=== PATIENT | male | born 1980 | race Caucasian/White ===

== ENCOUNTER 2016-11-26 10:01 | Emergency (ER) | payer MEDICAID ==
[~2016-11-26] VITALS: Ht 167.6 cm; Wt 88.0 kg
[~2016-11-26 10:01] MED LIST: IBUP-725 PO
[2016-11-26 10:03] VITALS: Ht 167.6 cm; Wt 88.0 kg
[2016-11-26] MEDS ORDERED: LIDOCAINE 2% (MDV) 20 ML INJ INJ STA (10:21)
[2016-11-26] MEDS ORDERED: DIPHTH/TET/ACEL PERTUSS (ADULT) 0.5 ML VIAL IM* ONE (10:30)
--- NOTE | 2016-11-26 11:31 | ERD ---
ER Documentation Chief Complaint Date/Time DATE: 11/26/16 TIME: 11:25 Chief Complaint LT MIDDLE FINGER LAC HPI This is a 36-year-old male with a history of diabetes type 2 and hypertension presenting to the emergency room complaining of a superficial laceration to the left volar aspect of the middle finger status post screwdriver injury, patient states that he was running to remove a doorknob with a screwdriver and he missed and cut his left middle finger. Patient states the pain is 4 out of 10, he denies any rashes range of motion. Patient does not remember his last shot. Patient also states that he has not checked his blood sugars in the past 2 years , he states that he has not been to the doctor's and he is worried about his blood sugars. Patient states that he used to take metformin. ROS All systems reviewed and are negative except as per history of present illness. Medications Home Meds Active Scripts Metformin* (Glucophage*) 500 Mg Tab, 500 MG PO BID, #60 TAB Prov:MIKAEL DIETRICH PA-C 11/26/16 Reported Medications Ibuprofen (Motrin) 400 Mg Tablet, 400 MG PO 04/15/12 Allergies Allergies: Coded Allergies: No Known Allergy (Unverified , 11/26/16) PMhx/Soc Medical and Surgical Hx: pt denies Medical Hx History of Surgery: Yes (HERNIA) Anesthesia Reaction: No Hx Neurological Disorder: No Hx Respiratory Disorders: No Hx Cardiac Disorders: No Hx Psychiatric Problems: No Hx Miscellaneous Medical Probl: No Hx Alcohol Use: No Hx Substance Use: No Hx Tobacco Use: No Physical Exam Vitals Vital Signs Date Time Temp Pulse Resp B/P Pulse Ox O2 Delivery O2 Flow Rate FiO2 11/26/16 13:15 98.0 80 18 120/70 99 11/26/16 10:03 98.0 84 18 124/77 99 Physical Exam General: WD/WN, in no apparent distress, non-toxic appearing HENT: NC/AT Eyes: Conjunctiva normal Neck: Supple Pulm: Normal labored breathing CV: Good capillary refill GI: Non-distended, no guarding Back: No masses Ext: No clubbing, cyanosis, or edema Neuro: Moves on all fours, no neuro deficits, sensation intact Skin: 1.2cm superficial laceration on the volar aspect of the distal left middle finger Psych: Normal mood Result Diagram: 11/26/16 1135 11/26/16 1135 Results 24 hrs Laboratory Tests Test 11/26/16 10:57 11/26/16 11:20 11/26/16 11:35 Bedside Glucose 221mg/dL Urine Color LT. YELLOW Urine Clarity CLEAR Urine pH 6.5 Urine Specific [place] 1.010 Urine Ketones NEGATIVE Urine Nitrite NEGATIVE Urine Bilirubin NEGATIVE Urine Urobilinogen 0.2 E.U./dL Urine Leukocyte Esterase NEGATIVE Urine Hemoglobin NEGATIVE Urine Glucose >=1000% Urine Total Protein NEGATIVE White Blood Count 10.810^3/ul Red Blood Count 5.4610^6/ul Hemoglobin 15.4g/dl Hematocrit 47.5% Mean Corpuscular Volume 87.0fl Mean Corpuscular Hemoglobin 28.2pg Mean Corpuscular Hemoglobin Concent 32.4g/dl Red Cell Distribution Width 12.6% Platelet Count 28058^3/UL Mean Platelet Volume 10.5fl Neutrophils % 43.4% Lymphocytes % 44.1% Monocytes % 6.5% Eosinophils % 5.1% Basophils % 0.7% Nucleated Red Blood Cells % 0.0/100WBC Neutrophils # 4.710^3/ul Lymphocytes # 4.810^3/ul Monocytes # 0.710^3/ul Eosinophils # 0.610^3/ul Basophils # 0.110^3/ul Nucleated Red Blood Cells # 0.010^3/ul Sodium Level 137mmol/L Potassium Level 4.0mmol/L Chloride Level 98mmol/L Carbon Dioxide Level 25mmol/L Anion Gap 18 Blood Urea Nitrogen 16mg/dl Creatinine 0.62mg/dl Glucose Level 246mg/dl Calcium Level 9.1mg/dl Total Bilirubin 0.6mg/dl Direct Bilirubin 0.00mg/dl Indirect Bilirubin 0.6mg/dl Aspartate Amino Transf (AST/SGOT) 21IU/L Alanine Aminotransferase (ALT/SGPT) 30IU/L Alkaline Phosphatase 90IU/L Total Protein 7.3g/dl Albumin 4.3g/dl Globulin 3.00g/dl Albumin/Globulin Ratio 1.43 Current Medications Medications (Trade) Dose Ordered Sig/Christopher Route PRN Reason Start Time Stop Time Status Last Admin Dose Admin Diphtheria/ Tetanus/Acell Pertussis (Adacel) 0.5 ml ONCE ONCE IM* 11/26/16 10:30 11/26/16 10:31 DC 11/26/16 10:32 Lidocaine (Xylocaine 2% (Mdv) 20 ml) 20 ml ONCE STAT INJ 11/26/16 10:21 11/26/16 10:23 DC Metformin HCl (Glucophage) 500 mg ONCE STAT PO 11/26/16 12:09 11/26/16 12:11 DC 11/26/16 13:09 Procedures/MDM This is a 36-year-old male with history of diabetes type 2 and hypertension patient presents to the ER with a superficial laceration on left volar aspect of the middle finger. My clinical suspicion for fracture, nerve/tendon/arterial injury is low due to physical examination. In the ED, patient was given TDAP and prepared for wound closure. In addition patient had a complaints of his blood sugars not be checked for the past 2 years therefore an Accu-Chek was done in the ED and glucose level was 230. Patient used to take metformin 2 years ago and has not had his blood sugars checked. Patient is suitable to follow-up with his primary care physician for further management. Blood work was drawn, patient had a glucose level of 246 and was treated with metformin the ED. and I have given patient prescription for metformin until he is able to follow-up with his primary care physician. I will low suspicion for DKA or hyper osmolar state. Patient appears well with stable vital signs. PROCEDURE NOTE: Consent was obtained. Patient was positioned appropriately. Copious amount of normal saline was used for irrigation. Wound was cleansed with betanidine. Approximately 3cc of lidocaine 2% without epinephrine was used as a digital block Patient was sterile draped with wound exposed. Wound was closed with good approximation with 3 x 4-0 Prolene sutures. Procedure tolerated without complications. Wound dressed with bacitracin and sterile gauze. DISPOSITION: hemodynamically stable and neurovascularly intact pre and post treatment. Prescription metformin was given. Discussed to return to this facility or primary care physician in 10 days for suture removal. Discussed to return to the ER for any signs of infection or if condition worsens. Patient expressed agreement and understanding of the plan. Departure Diagnosis: Primary Impression: Laceration Additional Impression: Diabetes type 2, uncontrolled Condition: MIKAEL Anderson PA-C Nov 26, 2016 11:31
[2016-11-26 11:44] LABS: ADD SCAN DIFF NO
[2016-11-26 11:45] LABS: ADD UMIC NO; URINE BILIRUBIN (Dip) NEGATIVE (NEGATIVE); URINE BLOOD (Dip) NEGATIVE (NEGATIVE); URINE COLOR LT. YELLOW (YELLOW); URINE GLUCOSE (Dip) >=1000 % (NEGATIVE); URINE KETONES (Dip) NEGATIVE (NEGATIVE); URINE LEUKOCYTE ESTERASE (Dip) NEGATIVE (NEGATIVE); URINE NITRITE (Dip) NEGATIVE (NEGATIVE); URINE TOTAL PROTEIN (Dip) NEGATIVE (NEGATIVE); URINE UROBILINOGEN (Dip) 0.2 E.U./dL (0.1-1.0)
[2016-11-26 11:47] LABS: BASOPHIL # 0.1 10^3/ul (0.0-0.1); BASOPHILS % 0.7 % (0.0-2.0); EOSINOPHILS # 0.6 10^3/ul (0.0-0.5); EOSINOPHILS % 5.1 % (0.0-7.0); HEMATOCRIT 47.5 % (42.0-52.0); HEMOGLOBIN 15.4 g/dl (14.0-18.0); LYMPHOCYTES # 4.8 10^3/ul (0.8-2.9); LYMPHOCYTES % 44.1 % (15.0-51.0); MEAN CORPUSCULAR HEMOGLOBIN 28.2 pg (29.0-33.0); MEAN CORPUSCULAR HGB CONC 32.4 g/dl (32.0-37.0); MEAN PLATELET VOLUME 10.5 fl (7.4-10.4); MONOCYTE # 0.7 10^3/ul (0.3-0.9); MONOCYTES % 6.5 % (0.0-11.0); NEUTROPHIL # 4.7 10^3/ul (1.6-7.5); NEUTROPHILS % 43.4 % (39.0-77.0); PLATELET COUNT 307 10^3/UL (140-415); RED BLOOD COUNT 5.46 10^6/ul (4.70-6.10); RED CELL DISTRIBUTION WIDTH 12.6 % (11.5-14.5); WHITE BLOOD COUNT 10.8 10^3/ul (4.8-10.8)
[2016-11-26 11:58] LABS: ALBUMIN 4.3 g/dl (3.3-4.9)
[2016-11-26 12:00] LABS: CREATININE 0.62 mg/dl (0.61-1.24)
[2016-11-26 12:01] LABS: ALBUMIN/GLOBULIN RATIO 1.43; BILIRUBIN,INDIRECT 0.6 mg/dl (0-1.1); BILIRUBIN,TOTAL 0.6 mg/dl (0.2-1.3); CALCIUM 9.1 mg/dl (8.4-10.2); TOTAL PROTEIN 7.3 g/dl (6.1-8.1)
[2016-11-26] MEDS ORDERED: metFORMIN 500 MG TAB PO STA (12:09)
[2016-11-26] MEDS ORDERED: METF500T4 PO (12:12)
[2016-11-26 13:15] VITALS: BP 120/70; PULSE 80; RESP 18; TEMP 98
== END 2016-11-26 13:18 | disposition home or self-care (01) ==
LOC: FTE 10:01
DX: S61.213A Laceration without foreign body of left middle finger without damage to nail, initial encounter (principal); E11.9 Type 2 diabetes mellitus without complications; W27.0XXA Contact with workbench tool, initial encounter; Y92.9 Unspecified place or not applicable; Z79.84 Long term (current) use of oral hypoglycemic drugs; Z23 Encounter for immunization
CPT/HCPCS: 12001; 36415; 80053; 81003; 82962; 85025; 90471; 90715; Z7502; Z7610

== ENCOUNTER 2016-11-28 09:35 | Emergency (ER) | payer MEDICAID ==
[~2016-11-28] VITALS: Ht 170.2 cm; Wt 89.5 kg
[~2016-11-28 09:35] MED LIST changes: +METF500T4 PO
[2016-11-28 09:37] VITALS: Ht 170.2 cm; Wt 89.5 kg
--- NOTE | 2016-11-28 10:44 | ERD ---
ER Documentation Chief Complaint Date/Time DATE: 11/28/16 TIME: 10:42 Chief Complaint left middle finger wound check HPI This a 36-year-old male who presents the emergency department today for a wound check of a laceration he sustained 2 days ago on his left hand middle finger. Denies any fevers or chills. ROS All systems reviewed and are negative except as per history of present illness. Medications Home Meds Active Scripts Metformin* (Glucophage*) 500 Mg Tab, 500 MG PO BID, #60 TAB Prov:MIKAEL DIETRICH PA-C 11/26/16 Reported Medications Ibuprofen (Motrin) 400 Mg Tablet, 400 MG PO 04/15/12 Allergies Allergies: Coded Allergies: No Known Allergy (Unverified , 11/28/16) PMhx/Soc Medical and Surgical Hx: pt denies Medical Hx History of Surgery: Yes (HERNIA) Anesthesia Reaction: No Hx Neurological Disorder: No Hx Respiratory Disorders: No Hx Cardiac Disorders: No Hx Psychiatric Problems: No Hx Miscellaneous Medical Probl: No Hx Alcohol Use: No Hx Substance Use: No Hx Tobacco Use: No Physical Exam Vitals Vital Signs Date Time Temp Pulse Resp B/P Pulse Ox O2 Delivery O2 Flow Rate FiO2 11/28/16 09:37 98.1 85 18 136/73 99 Physical Exam Const: Head: Atraumatic Eyes: Normal Conjunctiva ENT: Normal External Ears, Nose and Mouth. Neck: Full range of motion..~ No meningismus. Resp: Clear to auscultation bilaterally Cardio: Regular rate and rhythm, no murmurs Abd: Soft, non tender, non distended. Normal bowel sounds Skin: Evidence of 3 sutures placed with no erythema or warmth. No purulent drainage. Wound appears to be well-healed and well approximated Back: No midline or flank tenderness Ext: No cyanosis, or edema. Left hand middle finger full active range of motion. Pulses 2+. Good cap refill. Neur: Awake and alert Psych: Normal Mood and Affect Procedures/MDM This a 36-year-old male who presents to the emergency department today for wound check of a laceration he sustained 2 days ago. Patient middle finger on his left hand shows evidence of 3 sutures placed. Wound appears to be well- healed and well approximated. There is no erythema or warmth. No purulent drainage. Low suspicion for sepsis, deep space infection. Patient has full active range of motion and good cap refill. Patient was instructed to return in 5-7 days for suture removal. He was instructed to keep wound clean and dry. At this time the patient is stable for discharge and outpatient management. Patient should follow up with their PCP in the next 1-2 days. They may return to the emergency department sooner for any persistent or worsening of symptoms. Patient understood and agreed with the plan. Departure Diagnosis: Primary Impression: Encounter for wound re-check Condition: Fair Patient Instructions: Wound Care [facility] Usted se carrero hecho un examen mdico de control que le indica que no est en bruno condicin que requiera tratamiento urgente en el Departamento de Emergencia. Un estudio ms profundo y el tratamiento de gamble condicin pueden esperar sin ningn riesgo hasta que usted sea atendida/o en el consultorio de gamble mdico o bruno cl vidya. Es responsabilidad suya arreglar bruno shyann para el seguimiento del zoe. MANEJO DE CONDICIONES NO URGENTES EN EL FUTURO 1) Si usted tiene un mdico de atencin primaria: Usted debera llamar a gamble mdico de atencin primaria antes de venir al departamento de emergencia. Despus de las horas de consultorio, gamble doctor o gamble asociado/a est disponible por telfono. El mdico o enfermero de shital en el servicio telefnico puede asesorarle por [place] medio para atender el problema, o zoe contrario se puede programar bruno shyann. 2) Si usted no tiene un mdico de atencin primaria: Llame al mdico o clnica de referencia que aparece abajo makenzie las horas de consultorio para hacer bruno shyann para que le vean. CLINICAS: [facility] [phone] [id number] [facility] [phone] [address] [facility] [phone] [facility] [phone] [place] [id number] [phone] [facility]. [phone] [address] Additional Instructions: Llame al doctor MAANA y ashley bruno SHYANN PARA DENTRO DE 1-2 HODGSON.Dgale a la secretaria que nosotros le instruimos hacer esta shyann.Avise o llame si gamble condicin se empeora antes de la shyann. Regresa aqui si peor o no mejor. Keep wound clean and dry Return in 5-7 days for suture removal PERLA BOWENS PA-C Nov 28, 2016 10:44
== END 2016-11-28 10:55 | disposition home or self-care (01) ==
LOC: FTE 09:35
DX: Z48.01 Encounter for change or removal of surgical wound dressing (principal); Z79.84 Long term (current) use of oral hypoglycemic drugs
CPT/HCPCS: 99281

== ENCOUNTER 2016-12-04 10:35 | Emergency (ER) | payer MEDICAID ==
[~2016-12-04] VITALS: Ht 165.1 cm; Wt 88.5 kg
[2016-12-04 10:49] VITALS: Ht 165.1 cm; Wt 88.5 kg
[2016-12-04] MEDS ORDERED: CEPH-443 PO (12:48)
[2016-12-04] MEDS ORDERED: BACTRIM PO (12:48)
--- NOTE | 2016-12-04 17:49 | ERA ---
ER Documentation Chief Complaint Date/Time DATE: 12/04/16 TIME: 17:46 Chief Complaint SUTURE REMOVAL ON LEFT MIDDLE FINGER HPI Patient is returning for suture removal. No current complaints. ROS All systems reviewed and are negative except as per history of present illness. Medications Home Meds Active Scripts Trimethoprim-Sulfamethoxazole* (Bactrim*) 400-80 Mg Tab, 1 TAB PO DAILY, #10 TAB Prov:ELIAN EARL PA-C 12/04/16 Cephalexin* (Keflex*) 500 Mg Capsule, 500 MG PO QID for 5 Days, CAP Prov:ELIAN EARL PA-C 12/04/16 Metformin* (Glucophage*) 500 Mg Tab, 500 MG PO BID, #60 TAB Prov:MIKAEL DIETRICH PA-C 11/26/16 Reported Medications Ibuprofen (Motrin) 400 Mg Tablet, 400 MG PO 04/15/12 Allergies Allergies: Coded Allergies: No Known Allergy (Unverified , 11/28/16) PMhx/Soc History of Surgery: Yes (HERNIA) Anesthesia Reaction: No Hx Neurological Disorder: No Hx Respiratory Disorders: No Hx Cardiac Disorders: No Hx Psychiatric Problems: No Hx Miscellaneous Medical Probl: No Hx Alcohol Use: No Hx Substance Use: No Hx Tobacco Use: No Physical Exam Vitals Vital Signs Date Time Temp Pulse Resp B/P Pulse Ox O2 Delivery O2 Flow Rate FiO2 12/04/16 10:49 98.5 91 18 136/97 99 Physical Exam Const: [] Head: Atraumatic Eyes: Normal Conjunctiva ENT: Normal External Ears, Nose and Mouth. Neck: Full range of motion..~ No meningismus. Resp: Clear to auscultation bilaterally Cardio: Regular rate and rhythm, no murmurs Abd: Soft, non tender, non distended. Normal bowel sounds Skin: No petechiae or rashes Back: No midline or flank tenderness Ext: No cyanosis, or edema Neur: Awake and alert Psych: Normal Mood and Affect Procedures/MDM Patient is a 36-year-old male presents for suture removal 3 sutures on the left third digit on the radial side. Patient's sutures have been on for 9 days. There is tenderness to palpation slight erythema. We will go ahead and discharge with Keflex and Bactrim for possible infection. Departure Diagnosis: Primary Impression: Encounter for removal of sutures Additional Impressions: Laceration Suture check Condition: Stable Patient Instructions: Staple Removal, No Complication Additional Instructions: Follow up with your PCP within the next 1-3 days for a more thorough evaluation and a possible referral to a specialist. Return the the emergency department immediately if symptoms worsen or change. If you have any questions regarding medications, ask your pharmacist or us before you leave. If any adverse reactions occur while taking your medications, discontinue the treatment and return to the emergency department immediately. Take your medications as directed, and complete the entire course of treatment. ELIAN EARL PA-C Dec 04, 2016 17:49
== END 2016-12-04 12:58 | disposition home or self-care (01) ==
LOC: FTE 10:35
DX: Z48.02 Encounter for removal of sutures (principal); S61.213D Laceration without foreign body of left middle finger without damage to nail, subsequent encounter; X58.XXXD Exposure to other specified factors, subsequent encounter
CPT/HCPCS: 99284

== ENCOUNTER 2017-04-23 14:30 | Emergency (ER) | payer MEDICAID ==
[~2017-04-23] VITALS: Ht 172.7 cm; Wt 90.5 kg
[~2017-04-23 14:30] MED LIST changes: +BACTRIM PO; +CEPH-443 PO
[2017-04-23 14:35] VITALS: Ht 172.7 cm; Wt 90.5 kg
[2017-04-23 15:50] LABS: URINE BLOOD (Dip) POC Negative (NEGATIVE)
[2017-04-23] MEDS ORDERED: traMADol 50 MG TAB PO ONE (16:00)
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
[2017-04-23] MEDS ORDERED: IBUP-1542 PO (17:13)
[2017-04-23] MEDS ORDERED: TRAM50TA2 PO (17:13)
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
== END 2017-04-23 17:33 | disposition home or self-care (01) ==
LOC: FTE 14:30
DX: S20.212A Contusion of left front wall of thorax, initial encounter (principal); V49.40XA Driver injured in collision with unspecified motor vehicles in traffic accident, initial encounter
CPT/HCPCS: 71010; 72100; 81003; 82962; Z7502; Z7610

== ENCOUNTER 2018-04-28 18:32 | Emergency (ER) | END 2018-04-28 22:23 | disposition home or self-care (01) ==